=== PATIENT | male | born 2000 | race Caucasian/White ===

== ENCOUNTER 2024-02-23 06:13 | Emergency (ER) | payer OTHER ==
[~2024-02-23] VITALS: Ht 182.9 cm; Wt 98.8 kg
[2024-02-23 08:45] VITALS: BP 143/75; TEMP 97.4; O2SAT 100
== END 2024-02-23 08:50 | disposition home or self-care (01) ==
LOC: M ED 06:13
DX: D16.21 Benign neoplasm of long bones of right lower limb (principal)

== ENCOUNTER 2024-03-08 10:07 | Emergency (ER) | payer OTHER ==
[~2024-03-08] VITALS: Ht 182.9 cm; Wt 100.4 kg
[2024-03-08] MEDS ORDERED: NAPR-849 PO (10:22)
[2024-03-08 12:12] LABS: BASO % 0.5 % (0.0-1.0); EOS # 0.1 10^3/uL (0.0-0.5); EOS % 1.3 % (0.0-3.0); HEMATOCRIT 41.9 % (42.0-52.0); HEMOGLOBIN 14.2 g/dl (13.5-17.5); LYMPH # 1.5 10^3/uL (1.5-5.0); LYMPH % 19.6 % (24.0-44.0); MEAN CORPUSCULAR HEMOGLOBIN 28.7 pg (27.0-33.0); MEAN CORPUSCULAR HGB CONC 33.9 g/dl (32.0-36.5); MEAN CORPUSCULAR VOLUME 84.6 fl (80.0-96.0); MONO # 1.2 10^3/uL (0.0-0.8); NEUTROPHILS # 4.9 10^3/uL (1.5-8.5); NEUTROPHILS % 63.3 % (36.0-66.0); PLATELET COUNT, AUTOMATED 306 10^3/uL (150-450); RED BLOOD COUNT 4.95 10^6/uL (4.30-6.10); WHITE BLOOD COUNT 7.8 10^3/uL (4.0-10.0)
[2024-03-08] MEDS: FAMOTIDINE 20MG/2ML VIAL IVP ONE (12:33)
[2024-03-08] MEDS: diphenhydrAMINE 50MG/ML VIAL IV ONE (12:33)
[2024-03-08] MEDS: METOCLOPRAMIDE INJ 10MG/2ML VIAL IV ONE (12:33)
[2024-03-08] MEDS: NS 1,000 ML IV ONE (12:33)
[2024-03-08] MEDS: ACETAMINOPHEN *IV* 1,000 MG in IV 1 EA IV ONE (12:34)
[2024-03-08 12:42] LABS: ALBUMIN 4.4 G/DL (3.2-5.2); BILIRUBIN,DIRECT 0.2 MG/DL (<0.4); BILIRUBIN,TOTAL 0.5 MG/DL (0.3-1.2); MAGNESIUM LEVEL 2.3 MG/DL (1.8-2.4); TOTAL PROTEIN 7.7 G/DL (5.7-8.2)
[2024-03-08 14:27] VITALS: BP 129/76; TEMP 97.5; O2SAT 99
== END 2024-03-08 14:28 | disposition home or self-care (01) ==
LOC: M ED 10:07
DX: R51.9 Headache, unspecified (principal); K62.5 Hemorrhage of anus and rectum; F10.10 Alcohol abuse, uncomplicated; Z79.1 Long term (current) use of non-steroidal anti-inflammatories (NSAID)
CPT/HCPCS: 70450; 80047; 80076; 83735; 85025; 87880; 96374; 96375; 99284; J0131; J1100; J1200; J2765; S0028

== ENCOUNTER → 2024-09-23 | Outpatient (REF) ==
[~2024-09-23] MED LIST: NAPR-849 PO
== END ==
LOC: M PLAIMG 12:52
PROVIDERS: ATTEND Internal Medicine
DX: R06.02 Shortness of breath (principal)